=== PATIENT | female | born 1995 | race Caucasian/White ===

== ENCOUNTER 2017-11-13 08:56 | Emergency (ER) | payer OTHER ==
[~2017-11-13] VITALS: Ht 162.6 cm; Wt 61.7 kg
[2017-11-13] MEDS ORDERED: SODIUM CHLORIDE 0.9% 1000ML 1,000 ML IV STA (11:07)
[2017-11-13 14:11] VITALS: BP 133/72
== END 2017-11-13 13:04 | disposition home or self-care (01) ==
LOC: FSED 08:56
DX: R06.02 Shortness of breath (principal); E86.0 Dehydration; K52.9 Noninfective gastroenteritis and colitis, unspecified
CPT/HCPCS: 80307; 81003; 81025; 82948; 85025; 99284; J7030

== ENCOUNTER 2017-11-14 13:53 | Emergency (ER) | payer OTHER ==
[~2017-11-14] VITALS: Ht 162.6 cm; Wt 61.7 kg
[2017-11-14] MEDS ORDERED: LORAZEPAM INJ 2 MG/ML VIAL IV ONE (14:15)
[2017-11-14 16:27] VITALS: BP 115/76
== END 2017-11-14 16:00 | disposition home or self-care (01) ==
LOC: ER 13:53 → FSED 16:00
DX: R06.00 Dyspnea, unspecified (principal); F41.1 Generalized anxiety disorder
CPT/HCPCS: 80048; 81003; 81025; 83518; 85025; 85379; 93005; 96374; 99284; J2060